=== PATIENT | male | born 1980 | race Hispanic/Latino ===

== ENCOUNTER 2019-06-20 11:31 | Observation (INO) | payer SELFPAY ==
[2019-06-20] MEDS ORDERED: Glycopyrrolate 0.2 MG/ML 5 ML SYRINGE ONE (11:49)
[2019-06-20] MEDS ORDERED: Lidocaine 1% PF 5 ML VIAL ONE (11:49)
[2019-06-20] MEDS ORDERED: Succinylcholine Chloride 20 MG/ML 10 ml SYRINGE FS ONE (11:49)
[2019-06-20] MEDS ORDERED: Rocuronium Bromide 10 MG/ML (10ML VIAL) ONE (11:49)
[2019-06-20] MEDS ORDERED: PROPOFOL 200 MG/20 ML VIAL ONE (11:49)
[2019-06-20] MEDS ORDERED: Ondansetron PF 4 MG/2 ML Vial ONE ×2 (11:49→13:03)
[2019-06-20] MEDS ORDERED: Dexamethasone 20 MG/5 ML VIAL ONE (11:49)
[2019-06-20 12:20] LABS: #Lymphocytes 1.5 thou/uL (1.20-3.40); #Monocytes 1.1 thou/uL (0.11-0.59); %Basophils 0.2 % (0.0-1.0); %Eosinophils 0.1 % (0.0-10.0); %Lymphocytes 8.7 % (21.0-51.0); %Neutrophils 85.1 % (42.0-75.0); Mean Corpuscular HGB CONC 33.6 g/dL (32.0-36.0); Mean Corpuscular Hemoglobin 31.1 pg (27.0-31.0); Mean Corpuscular Volume 92.4 fL (78.0-98.0); Mean Platelet Volume 6.7 fL (7.4-10.4); Platelet Count 362 thou/uL (130-400); RBC Distribution Width 11.3 % (11.5-14.5); Red Blood Cell (RBC) Count 5.15 mill/uL (4.70-6.10); White Blood Cell (WBC) Count 17.7 thou/uL (4.8-10.8)
[2019-06-20 12:40] LABS: ALT (SGPT) 60 U/L (8-55); AST (SGOT) 31 U/L (5-34); Albumin 4.7 g/dL (3.5-5.0); Alkaline Phosphatase 68 U/L (40-110); Anion Gap 14 mmol/L (10-20); BUN (Urea Nitrogen) 16 mg/dL (8.9-20.6); Bilirubin, Total 0.9 mg/dL (0.2-1.2); Calc. Creatinine Clearance 0 mL/min (70-130); Calcium 9.6 mg/dL (7.8-10.44); Carbon Dioxide 25 mmol/L (22-29); Chloride 103 mmol/L (98-107); Estimated GFR-MDRD Greater than 90; Globulin 3.5 g/dL (2.4-3.5); Glucose 120 mg/dL (70-105); Lipase 11 U/L (8-78); Potassium 4.1 mmol/L (3.5-5.1); Protein, Total 8.2 g/dL (6.0-8.3); Sodium 138 mmol/L (136-145)
[2019-06-20] MEDS ORDERED: Morphine 4 MG/ML VIAL ONE (13:03)
[2019-06-20] MEDS ORDERED: Pantoprazole 40 MG VIAL ONE (13:03)
--- NOTE | 2019-06-20 13:59 | CT ---
CT ABDOMEN AND PELVIS WITH IV CONTRAST: HISTORY: Abdominal pain, right upper quadrant and epigastric pain. FINDINGS: The lung bases are clear of acute process. The liver, gallbladder, pancreas, spleen and adrenal gland s are unremarkable. No renal calculus or acute obstruction. Minimally abnormally dilated appendix with a small, faint appendicolith at its origin with some very subtle periappendiceal fat stranding, evidence for acute appendicitis. No evidence for extraluminal gas or free intraperitoneal fluid or dr laminble abscess. Fat-containing umbilical hernia. IMPRESSION: Evidence for acute appendicitis. Findings discussed with Nitza Pelletier at 1:50 p.m. CODE CR POS: OFF
[2019-06-20] MEDS ORDERED: Piperacillin/Tazobactam 4.5 GM VIAL ONE (14:02)
[2019-06-20 14:34] LABS: PTT 26.8 SEC (22.9-36.1); Prothrombin Time 13.2 SEC (12.0-14.7)
--- NOTE | 2019-06-20 15:02 | HP ---
HISTORY OF PRESENT ILLNESS: Mr. Reeder is a 39-year-old morbidly obese man, who presented to emergency department today reporting insidious onset periumbilical abdominal pain, which started approximately at 1900 hours yesterday, intensified to 10/10 and has settled in the right lower quadrant since 2300 hours. Pain is associated with multiple episodes of nausea and one bout of nonbilious emesis. He denies any change in his bowel habits. He admits to some chills, but denies any fevers. He does, however, recall vague abdominal symptoms, which started since last week compared to stomach growling as if he is extremely hungry, but this was without relief with eating. He denies any hematochezia or melena. PAST MEDICAL HISTORY: He denies any previous medical problems. PAST SURGICAL HISTORY: The patient denies any previous surgeries. SOCIAL HISTORY: He is , lives at home with his . Admits to occasional intake of ethanol in moderate amount and denies any illicit drug abuse or cigarette smoking. PREHOSPITALIZATION MEDICATIONS: None. ALLERGIES: THE PATIENT DENIES ANY KNOWN DRUG ALLERGIES. REVIEW OF SYSTEMS: Ten-point review of systems is essentially unremarkable except as stated in past medical history and chief complaint. PHYSICAL EXAMINATION: GENERAL: This reveals a 39-year-old morbidly obese man, who is otherwise coherent, interactive, and appears stated age. The patient is alert and oriented x3, appears to be in moderate acute distress secondary to abdominal pain. VITAL SIGNS: Today include blood pressure 131/73, pulse is 85, temperature is 98.3 degrees Fahrenheit, and oxygen saturation is 99% on room air. HEENT: Reveals normocephalic and atraumatic. Pupils are equal, round, reactive to light and accommodation. HEART: Reveals regular rate and rhythm. No murmurs or gallops auscultated. LUNGS: Clear to auscultation bilaterally. His breathing is regular and nonlabored. ABDOMEN: Soft, morbidly obese, and tender to palpation in the right lower quadrant at McBurney's. He has a positive Rovsing sign. Liver and spleen are otherwise nonpalpable below costal margin. There is a reducible small-sized umbilical hernia present, which appears to contain preperitoneal fat. The overlying skin is pale looking, but appears viable with no ulceration. EXTREMITIES: Reveal 2+ radial and pedal pulses bilaterally. No ankle edema is present. NEUROLOGIC: Reveals no focal deficits present. LABORATORY FINDINGS: Today include a CBC with 17,700 white blood cells, hemoglobin and hematocrit of 16.0 and 47.6 respectively. The platelet count is 362,000. Metabolic profile; sodium 138, potassium is 4.1, chloride is 103, bicarb is 25, BUN is 16, creatinine is 0.84, glucose 120, total bilirubin is 0.9. AST and ALT are noted at 31 and 60 respectively. Alkaline phosphatase is normal at 68. Serum lipase is normal at 11. I have personally reviewed the CT scan of the abdomen and pelvis, which reveals dilated appendix with periappendiceal fat stranding. Minimal free fluid is noted. There is no pneumoperitoneum present. IMPRESSION: 1. Acute appendicitis. 2. Non-incarcerated umbilical hernia. PLAN: 1. Laparoscopic appendectomy. 2. Umbilical hernia repair. Above findings and plan has been discussed with the patient, who indicates understanding of the information given. I have advised him of the risks and benefits of the proposed surgery to include, but not limited to bleeding, infection, injury to bowel or surrounding structures. Additionally, the umbilical hernia will be repaired without mesh. Therefore, the risk of recurrence is modest at best. The patient indicates understanding of the information I provided to him today. I have answered his questions. This information was provided to the patient in the presence of his and his nurse in the emergency department. He has granted consent for this admission and surgical intervention. Job ID: [id number]
[2019-06-20] MEDS ORDERED: Iopamidol-370 76% 500 ML 1 ML ONE (15:49)
[2019-06-20] MEDS ORDERED: Lidocaine 1% w/Epinephrine 1:100K 20 ML VIAL ONE (17:36)
[2019-06-20] MEDS ORDERED: Bupivacaine 0.25% HCL 30 ML VIAL ONE (17:36)
[2019-06-20] MEDS ORDERED: Fentanyl 100 MCG/2 ML VIAL ONE (17:45)
[2019-06-20] MEDS ORDERED: Midazolam HCl 2 mg/2 ml Vial ONE (17:45)
[2019-06-20] MEDS ORDERED: HYDROmorphone 2 MG/ML VIAL ONE (19:13)
[2019-06-20] MEDS ORDERED: hydrALAZINE 20 MG/ML VIAL SLOW IVP PRN (19:30)
[2019-06-20] MEDS ORDERED: Dextrose 50% Abboject 50 ML SYRINGE SLOW IVP PRN (19:30)
[2019-06-20] MEDS ORDERED: Dextrose 5% in Water 1,000 ML IV PRN (19:30)
[2019-06-20] MEDS ORDERED: Ondansetron PF 4 MG/2 ML Vial IVP PRN (19:30)
[2019-06-20] MEDS ORDERED: Promethazine HCl 25 MG/ML VIAL IM PRN ×2 (19:30→19:47)
[2019-06-20] MEDS ORDERED: traMADol HCl 50 MG TAB PO PRN ×2 (19:33)
[2019-06-20] MEDS ORDERED: Ibuprofen 600 MG TAB PO PRN (19:33)
[2019-06-20] MEDS ORDERED: Ketorolac Tromethamine 30 MG/ML VIAL IVP PRN (19:47)
[2019-06-20] MEDS ORDERED: HYDROmorphone 2 MG/ML VIAL SLOW IVP PRN (19:47)
[2019-06-20] MEDS ORDERED: Promethazine HCl 25 MG/ML VIAL SLOW IVP PRN (19:47)
[2019-06-20] MEDS ORDERED: Ondansetron HCl/PF 4 MG/2 ML Vial IVP PRN (19:47)
[2019-06-20] MEDS ORDERED: Ketorolac Tromethamine 30 MG/ML VIAL ONE (20:22)
[2019-06-20] MEDS ORDERED: Famotidine/PF 20 mg/2ml Vial SLOW IVP SCH (21:00)
[2019-06-20 21:16] VITALS: BMI 38.2
[2019-06-20] MEDS: Lactated Ringer's 1,000 ML IV SCH (21:27)
[2019-06-20] MEDS: Famotidine 20 MG TAB PO SCH (22:46)
[2019-06-20] MEDS: Piperacillin/Tazobactam 3.375 GM in Sodium Chloride 0.9% 100 ML IVPB SCH (22:49)
[2019-06-20] MEDS: Acetaminophen 500 MG TAB PO SCH (22:49)
--- NOTE | 2019-06-20 23:54 | PRG ---
DATE OF SERVICE: 06/20/2019 SUBJECTIVE: The patient was evaluated in the postanesthesia care unit. He is postop from a laparoscopic appendectomy. He was just waking up from his anesthesia. I discussed with him and his our plan. He currently denies any pain. He states that he feels much better than prior to surgery. Denies any nausea at this time. PHYSICAL EXAMINATION: VITAL SIGNS: Stable. The patient is afebrile. GENERAL: The patient is resting comfortably in bed. He is sleepy, clearly related to his anesthesia, but does answer appropriately. LUNGS: Clear to auscultation bilaterally. HEART: Regular rate and rhythm. ABDOMEN: Soft with hypoactive bowel sounds. Surgical sites are clean, dry, and intact. ASSESSMENT: Status post laparoscopic appendectomy. PLAN: Plan will be to have the patient spend the night on the surgical floor. He will have clear liquid diet overnight. If he tolerates this, we will likely advance him in the morning for discharge within the next 24 hours. Job ID: [id number]
--- NOTE | 2019-06-21 01:11 | OP ---
DATE OF PROCEDURE: 06/20/2019 PREOPERATIVE DIAGNOSES: 1. Acute appendicitis. 2. Umbilical hernia. POSTOPERATIVE DIAGNOSES: 1. Acute appendicitis. 2. Umbilical hernia. OPERATIONS PERFORMED: 1. Laparoscopic appendectomy. 2. Repair of umbilical hernia. ANESTHESIA: General endotracheal. ESTIMATED BLOOD LOSS: 5 mL. FLUIDS GIVEN: 1100 mL crystalloids. COUNTS: Sponge and instrument counts were verified as correct x2. COMPLICATIONS: None apparent at the time of operation. INDICATIONS FOR OPERATION: A 39-year-old morbidly obese man, presented with 3-day history of abdominal pain. Clinical radiographic examination was consistent with acute appendicitis and umbilical hernia, which required a trip to the operating room for appendectomy and hernia repair. Findings are consistent with suppurative but nonperforated appendix and non-incarcerated umbilical hernia. DESCRIPTION OF PROCEDURE: Informed consent was obtained from the patient, brought to the operating room and placed in supine position. Following general anesthesia, abdomen was sterilely prepped and draped in usual fashion. The skin below the umbilicus was infiltrated with 0.25% Marcaine with epinephrine. A curvilinear infraumbilical incision was made using 15 scalpel. Umbilical stalk was dissected off the umbilical sac bluntly and by sharp dissection. The peritoneal cavity was then entered through the defect. An 11 mm trocar was inserted through the umbilical defect into the peritoneal cavity through which the abdomen was insufflated with 3 L of CO2 gas. Laparoscopy confirmed proper placement of the port. No injuries to underlying structures. Under direct laparoscopy, two 5 mm suprapubic and left lower quadrant ports were placed after the overlying skin were infiltrated with 0.25% Marcaine with epinephrine. Appropriate incision was made. The patient was then placed in a Trendelenburg position, rotated to his left. I introduced Prestige grasper through the left lower quadrant port using this bluntly takedown omental adhesions to expose suppurative but nonperforated appendix. Endo Bartlett forceps introduced through the suprapubic port site, was used to grasp the appendix which was elevated. I then used a LigaSure device to sterilely divide the mesoappendix down to the base with good hemostasis. Appendix itself was divided at the appendiceal-cecal junction using an Endoloop. Suppurative appendix was delivered of the abdominal cavity using EndoCatch. Operative site was inspected for good hemostasis. The distal ileum was run from the ileocecal junction to proximal 2 feet, finding no Meckel's diverticulum. The umbilical defect was closed under direct vision using an endo closure device and 0 Vicryl suture. Abdomen was desufflated and all ports and instruments removed and accounted for. The umbilicus was then reattached to [place] fascia using interrupted suture of 3-0 Vicryl. All skin incisions were closed using 4-0 Monocryl suture in subcuticular fashion. Dermabond was applied over incisional closure. The patient tolerated his operation without any apparent complication and was returned to recovery room in satisfactory condition. Job ID: [id number]
[2019-06-21] MEDS: Acetaminophen 500 MG TAB PO SCH ×2 (05:28→12:07)
[2019-06-21] MEDS: Piperacillin/Tazobactam 3.375 GM in Sodium Chloride 0.9% 100 ML IVPB SCH ×2 (05:29→12:06)
[2019-06-21] MEDS: Lactated Ringer's 1,000 ML IV SCH ×2 (07:34→12:05)
[2019-06-21] MEDS: Famotidine 20 MG TAB PO SCH (09:34)
[2019-06-21 10:11] LABS: Bacteria/HPF None Seen HPF (None Seen); Bilirubin Negative (Negative); Blood, Urine Negative (Negative); Clarity Clear (Clear); Glucose, Urine (Dipstick) Normal (Negative); Leukocyte Negative Leu/uL (Negative); Nitrite Negative (Negative); Protein, Urine (Dipstick) Negative (Neg-Trace); RBC/HPF 0-3 HPF (0-3); Squamous Epithelial None Seen HPF (0-3); Urobilinogen Normal mg/dL (Less than 2)
[2019-06-21 10:18] LABS: Urine Culture Reflex Yes Yes
[2019-06-21 15:29] VITALS: BP 113/70; TEMP 98.4
--- NOTE | 2019-06-21 15:57 | DIS ---
DATE OF ADMISSION: 06/20/2019 DATE OF DISCHARGE: 06/21/2019 ADMITTING DIAGNOSIS: Acute appendicitis. DISCHARGE DIAGNOSIS: Acute appendicitis. PROCEDURE PERFORMED: Laparoscopic appendectomy on 06/20/2019. Please see a separate dictation for operative report. HISTORY AND HOSPITAL COURSE: A 39-year-old obese man, presented with abdominal pain. Clinical and radiographic examination were consistent with acute appendicitis, for which the patient underwent an uneventful laparoscopic appendectomy yesterday. Findings are consistent with acute suppurative appendicitis. On postop day 1, the patient is ambulating with minimum difficulty. Pain is adequately controlled on oral analgesics. He is tolerating clear liquid diet, passing flatus, but no bowel movement. He has remained hemodynamically stable and afebrile through this hospitalization. Abdominal examination reveals intact, clean, and dry incisional wounds. Abdomen is less distended with incisional tenderness to palpation. He clearly has no peritoneal signs on examination. DISCHARGE INSTRUCTIONS: The patient will be discharged home today with the following instructions; 1. He may take Tylenol 1000 mg p.o. q.6 hours p.r.n. pain, alternating this with ibuprofen 600 mg p.o. q.6 hours p.r.n. pain. 2. Additionally, he is given a prescription for tramadol 50 mg #30 to be taken 1 to 2 p.o. q.6 hours p.r.n. breakthrough pain. 3. He is to follow up with me in the [facility] in 2 weeks. 4. He is to avoid weight lifting in excess of 20 pounds until he has been released by me. 5. He may shower effective tomorrow, 06/22/2019. 6. He is to call me with any questions or problems including exacerbation of abdominal pain, fever in excess of 101 degrees Fahrenheit, or intolerance to oral intake. 7. Additionally, given a prescription for Augmentin 875 mg #10 to be taken one p.o. b.i.d. for 5 days. The patient indicates understanding information I have given him today. I have answered his questions. This discharge instructions were provided to the patient through a interpreter in the presence of his as well. The patient indicates understanding and has expressed gratitude for the care rendered to him during this hospitalization and surgery. Job ID: [id number]
[2019-06-21] MEDS ORDERED: Amoxicillin/Potassium Clav 875 MG TAB PO SCH (21:00)
== END 2019-06-21 16:30 | disposition home or self-care (01) ==
LOC: ERS 11:31 → SURG A 19:35
PROVIDERS: ADMIT Surgery; ATTEND Surgery
PROC: 0DTJ4ZZ Resection of Appendix, Percutaneous Endoscopic Approach (ICD-10-PCS; principal; 2019-06-20)
PROC: 0WQF0ZZ Repair Abdominal Wall, Open Approach (ICD-10-PCS; 2019-06-20)
DX: K35.80 Unspecified acute appendicitis (principal); K42.9 Umbilical hernia without obstruction or gangrene; E78.5 Hyperlipidemia, unspecified; E66.01 Morbid (severe) obesity due to excess calories; Z68.38 Body mass index [BMI] 38.0-38.9, adult
CPT/HCPCS: 36415; 74177; 80053; 81001; 83605; 83690; 85025; 85610; 85730; 86850; 86900; 86901; 87086; 88304; 93005; 94760; 96361; 96365; 96366; 96375; C9113; G0378; J1100; J1170; J1885; J2001; J2250; J2270; J2405; J2543; J2704; J3010; J3490; Q9967; S0020; S0028